=== PATIENT | male | born 1985 | race African-American/Black ===

== ENCOUNTER 2021-06-07 17:33 | Emergency (ER) | payer MEDICAID, OTHER ==
[~2021-06-07] VITALS: Ht 177.8 cm; Wt 74.8 kg
[2021-06-07 17:44] VITALS: BP 133/86
== END 2021-06-08 00:07 | disposition left against medical advice (07) ==
LOC: ER 17:33
DX: U07.1 COVID-19 (principal); M79.10 Myalgia, unspecified site; M54.50 Low back pain, unspecified; R51.9 Headache, unspecified; R50.9 Fever, unspecified; R06.02 Shortness of breath; Z53.21 Procedure and treatment not carried out due to patient leaving prior to being seen by health care provider
CPT/HCPCS: 36415; 87426

== ENCOUNTER 2022-10-18 12:08 | Emergency (ER) | payer MEDICAID, OTHER ==
[~2022-10-18] VITALS: Ht 175.3 cm; Wt 80.0 kg
[2022-10-18] MEDS ORDERED: IBUP800T27 PO (13:45)
[2022-10-18 14:00] VITALS: BP 119/75
== END 2022-10-18 14:05 | disposition home or self-care (01) ==
LOC: ER 12:08
DX: S63.501A Unspecified sprain of right wrist, initial encounter (principal); S60.221A Contusion of right hand, initial encounter; X58.XXXA Exposure to other specified factors, initial encounter; Y93.89 Activity, other specified; Y92.89 Other specified places as the place of occurrence of the external cause; Y99.8 Other external cause status
CPT/HCPCS: 73130

== ENCOUNTER 2022-11-10 11:02 | Emergency (ER) | payer OTHER ==
[~2022-11-10] VITALS: Ht 172.7 cm; Wt 75.0 kg
[~2022-11-10 11:02] MED LIST: IBUP-1456 PO
[2022-11-10] MEDS ORDERED: IBUP-1456 PO (12:26)
[2022-11-10] MEDS ORDERED: CEPH500C PO (12:26)
[2022-11-10 12:41] VITALS: BP 114/78
== END 2022-11-10 12:44 | disposition home or self-care (01) ==
LOC: ER 11:02
DX: L73.9 Follicular disorder, unspecified (principal); F17.210 Nicotine dependence, cigarettes, uncomplicated; Z88.6 Allergy status to analgesic agent